=== PATIENT | male | born 1960 | race Caucasian/White ===

== ENCOUNTER 2017-06-22 11:57 | Day surgery (SDC) | payer OTHER ==
[~2017-06-22 11:57] MED LIST: CEFAZOLIN 2 GM/50 ML (PMX) 50 ML IVPB; SOD CHLORIDE 0.9% 1,000 ML IV
[2017-06-22] MEDS ORDERED: FENTAnyl 50 MCG/ML VIAL (14:53)
[2017-06-22] MEDS: POLYMYXIN/BACITRACIN 1L IRRIG (15:16)
[2017-06-22] MEDS ORDERED: ROCURONIUM 50 MG INJ (15:19)
[2017-06-22] MEDS ORDERED: PROPOFOL 20 ML (15:19)
[2017-06-22] MEDS ORDERED: LIDOCAINE 100 MG SYRINGE (15:19)
[2017-06-22] MEDS ORDERED: SUGAMMADEX SODIUM 200 MG/2 ML VIAL IV (15:19)
[2017-06-22] MEDS ORDERED: ROPIVACAINE 0.5 % 30 ML VIAL (15:19)
[2017-06-22] MEDS ORDERED: CEFAZOLIN 1 GM INJ (15:19)
[2017-06-22] MEDS ORDERED: SUCCINYLCHOLINE CHLORIDE 100 MG/5 ML SYG IV (15:19)
[2017-06-22] MEDS ORDERED: HYDROmorphONE (0.2 MG/ML) 10ML SYG IV ×3 (15:30)
[2017-06-22] MEDS ORDERED: MEPERIDINE 25 MG INJ IV (15:30)
[2017-06-22] MEDS ORDERED: FENTAnyl 50 MCG/ML VIAL IV (15:30)
[2017-06-22] MEDS: BUPIVACAINE 0.25% (MPF) 30 ML INJ (15:30)
[2017-06-22] MEDS ORDERED: METOCLOPRAMIDE 10 MG INJ IV (15:30)
[2017-06-22] MEDS ORDERED: DIPHENHYDRAMINE 50 MG INJ IV (15:30)
[2017-06-22] MEDS: FENTAnyl 50 MCG/ML VIAL IV ×2 (16:02→16:17)
[2017-06-22] MEDS: ONDANSETRON 4 MG INJ IV (16:05)
[2017-06-22] MEDS: HYDROCODONE/APAP (5/325) TAB PO (17:00)
== END 2017-06-22 18:14 | disposition home or self-care (01) ==
LOC: SDS 11:57
DX: K40.90 Unilateral inguinal hernia, without obstruction or gangrene, not specified as recurrent (principal); I10 Essential (primary) hypertension
CPT/HCPCS: 49505